=== PATIENT | male | born 1995 | race Caucasian/White ===

== ENCOUNTER 2017-08-05 08:01 | Emergency (ER) | payer BC ==
[~2017-08-05] VITALS: Ht 185.4 cm; Wt 79.1 kg
[2017-08-05 08:07] VITALS: TEMP 36.7; Ht 185.4 cm; Wt 79.1 kg
[2017-08-05] MEDS ORDERED: SODIUM CHLORIDE 0.9% 1000ML 1,000 ML IV STA (08:36)
--- NOTE | 2017-08-05 08:54 | EMERGENCY ROOM VISIT NOTE ---
ED Visit Note First contact with patient: 08:25 CHIEF COMPLAINT: Migraine headache HISTORY OF PRESENT ILLNESS: This 21-year-old male patient presents to the emergency department one day after experiencing a headache. 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 He states that the workout routine was much harder than usual, and was very high in cardio. He states proximally 2 hours after the workout ended, he noticed the acute onset of a dull headache. The patient states he had not eaten much yesterday, but otherwise states his daily routine was normal. The patient states he had been drinking plenty of water during the workout and later on throughout the day. He does have a history of migraines, but states this headache is significantly different than his previous history of migraines. He describes the pain as a constant, dull ache, and rates at 4/10. The pain moves from one side of the head to the other. He states he did attempt taking 1 Excedrin, and this did help to calm the discomfort down, however nothing has completely taken headache away. He states he did not sleep well last night, but states sleep, water, food, sitting in the quiet or dark, or a cool compress his symptoms. This is not the worst headache of the patient's life. The patient has not had any previous imaging studies. He denies any weakness or numbness of the extremities. He is having no difficulty with speech or vision. He has had no trauma to the head or neck. The patient denies fever or chills. He does report nausea, but denies vomiting. The patient does report mild photophobia and phonophobia. REVIEW OF SYSTEMS: A 10-system review of systems was performed with positives and pertinent negatives listed in the history of present illness. All other systems were reviewed and are negative. ALLERGIES: None MEDICATIONS: None PMH: migraines SOCIAL HISTORY: The patient is a [employer]. He participates in Rowing in school. He denies drug, alcohol, tobacco use. PHYSICAL EXAM: Vital Signs: Reviewed Nurse's notes, vital signs stable. GENERAL : This is a 21 year old male patient, non toxic in appearance and in no acute distress. MENTAL STATUS: Alert, oriented, and coherent. HEENT: Normocephalic. PERRLA. EOMI. Nares patent without nuchal rigidity. Tympanic membranes pearly mcknight without erythema or effusion bilaterally. Mucous membranes moist. NECK: Supple, no nuchal rigidity, nontender, no lymphadenopathy. HEART: Regular rhythm and normal rate without murmurs, ectopy, gallops, or rubs. LUNGS: Clear to auscultation bilaterally without wheezes, rales or rhonchi. No dullness to percussion. No accessory muscle use. No retractions. SKIN: Normal. NEUROLOGICAL: Pupils are round, equal and react to light. The optic fundi are normal and the discs are flat. The patient moves all extremities well and the gait is normal. RADIOLOGY: CT head without contrast: FINDINGS: Manager Forensic topogram: Unremarkable. Apparent crowding of the foramen magnum may relate to normal variant positioning of the cerebellar tonsils or Chiari malformation given the absence of acute intracranial pathology. Ventricles and sulci normal in size. Brain parenchyma normal in appearance with preserved mcknight-white differentiation. No mass effect or midline shift. No hemorrhage or acute territorial infarct. No extra-axial fluid collection. Paranasal sinuses and mastoid air cells clear. Calvarium intact. IMPRESSION: 1. No acute intracranial pathology. EMERGENCY DEPARTMENT COURSE: I examined the patient. Initial labs were drawn, an IV established, and CT scan of the head without contrast was ordered. Labs are reviewed and normal, including electrolytes and magnesium. The patient was given 1 L normal saline solution bolus through the IV. The patient did report a very mild headache prior to discharge, and did request something for the pain. He is extremely anxious about the headache, and believes there could be an intracranial hemorrhage. I did discuss with him that we did rule this out with the normal CT scan. The patient was given 600 mg ibuprofen and 4 mg sublingual Zofran prior to discharge. He was discharged home in good condition and advised to return to emergency department for worsening symptoms. The differential diagnosis includes acute intracranial bleed, meningitis, encephalitis, mass or mass effect, sinusitis, infection, tumor, headache, temporal arteritis and carbon monoxide exposure, and migraine. DIAGNOSIS: Headache DISCHARGE INSTRUCTIONS & TREATMENT: You have been treated in the Emergency Department for a Headache. For pain control, you can use the following inbs-mmt-kynbieb medicines (if >12 yo): Ibuprofen(Motrin, Advil) may be used for fever or pain. Use 600mg every six hours as needed. Take with food. Avoid using more than 2400mg in a 24 hour period. Do not use 2400mg per day for more than three consecutive days without physician direction. Prolonged inappropriate use can lead to stomach upset or ulcers. (AND/OR) Acetaminophen(Tylenol) may be used for fever or pain. Use 1000mg every six to eight hours as needed. Avoid using more than 3000mg in a 24 hour period. You should relax in a quiet, dark place for the rest of the day. Avoid any possible triggers including: cigarette smoke, caffeine, nicotine, chocolate, wine, beer, loud noises or music, or bright lights. You should schedule a follow-up appointment in 2-3 days with your Primary Care Provider or established Neurologist for further evaluation and treatment of your Headache. Return to the Emergency Department if your current symptoms worsen despite treatment course outlined above, or if you develop any of the following symptoms : intractable pain despite aforementioned treatment course, visual disturbances , loss of vision, unilateral weakness or facial drooping, slurring of speech, loss of coordination, or loss of consciousness. Current/Historical Medications No Active Prescriptions or Reported Meds Allergies Coded Allergies: Sulfa Antibiotics (Unverified Allergy, Intermediate, HIVES, 08/05/17) OCCURRED WHEN HE WAS ONE Vital Signs Date Time Temp Pulse Resp B/P (MAP) Pulse Ox O2 Delivery O2 Flow Rate FiO2 08/05/17 10:15 62 20 103/76 95 08/05/17 09:25 59 16 126/44 98 Room Air 08/05/17 08:07 36.7 89 18 115/77 95 Laboratory Results 08/05/17 08:48 Red Blood Count 5.67, Mean Corpuscular Volume 87.1, Mean Corpuscular Hemoglobin 28.9, Mean Corpuscular Hemoglobin Concent 33.2, Mean Platelet Volume 8.9, Neutrophils (%) (Auto) 70.9, Lymphocytes (%) (Auto) 22.0, Monocytes (%) (Auto) 6.3, Eosinophils (%) (Auto) 0.4, Basophils (%) (Auto) 0.2, Neutrophils # (Auto) 6.47, Lymphocytes # (Auto) 2.01, Monocytes # (Auto) 0.58, Eosinophils # (Auto) 0.04, Basophils # (Auto) 0.02 08/05/17 08:48 Test 08/05/17 08:48 White Blood Count 9.14 K/uL (4.8-10.8) Red Blood Count 5.67 M/uL (4.7-6.1) Hemoglobin 16.4 g/dL (14.0-18.0) Hematocrit 49.4 % (42-52) Mean Corpuscular Volume 87.1 fL (80-100) Mean Corpuscular Hemoglobin 28.9 pg (25-34) Mean Corpuscular Hemoglobin Concent 33.2 g/dl (32-36) Platelet Count 269 K/uL (130-400) Mean Platelet Volume 8.9 fL (7.4-10.4) Neutrophils (%) (Auto) 70.9 % Lymphocytes (%) (Auto) 22.0 % Monocytes (%) (Auto) 6.3 % Eosinophils (%) (Auto) 0.4 % Basophils (%) (Auto) 0.2 % Neutrophils # (Auto) 6.47 K/uL (1.4-6.5) Lymphocytes # (Auto) 2.01 K/uL (1.2-3.4) Monocytes # (Auto) 0.58 K/uL (0.11-0.59) Eosinophils # (Auto) 0.04 K/uL (0-0.5) Basophils # (Auto) 0.02 K/uL (0-0.2) RDW Standard Deviation 42.3 fL (36.4-46.3) RDW Coefficient of Variation 13.3 % (11.5-14.5) Immature Granulocyte % (Auto) 0.2 % Immature Granulocyte # (Auto) 0.02 K/uL (0.00-0.02) Anion Gap 7.0 mmol/L (3-11) Est Creatinine Clear Calc Drug Dose 162.1 ml/min Estimated GFR () 148.6 Estimated GFR (Non- 128.2 BUN/Creatinine Ratio 10.4 (10-20) Calcium Level 9.9 mg/dl (8.5-10.1) Magnesium Level 2.3 mg/dl (1.8-2.4) Medications Administered Medications (Trade) Dose Ordered Sig/Willam Route Start Time Stop Time Status Last Admin Dose Admin Sodium Chloride 1,000 ml @ 999 mls/hr Q1H1M STAT IV 08/05/17 08:36 9/12/17 09:37 DC 08/05/17 08:59 999 MLS/HR Ibuprofen (Motrin Tab) 600 mg NOW STAT PO 08/05/17 09:56 08/05/17 09:58 DC 08/05/17 10:30 600 MG Ondansetron HCl (Zofran Odt) 4 mg NOW STAT SL 08/05/17 09:56 08/05/17 09:58 DC 08/05/17 10:31 4 MG Departure Information Impression Primary Impression: Headache Dispostion Home / Self-Care Condition GOOD Prescriptions No Active Prescriptions or Reported Meds Referrals No Doctor, Assigned (PCP) [facility] Patient Instructions ED Headache Tension, My [facility] Additional Instructions You have been treated in the Emergency Department for a Headache. For pain control, you can use the following ecad-ags-bdjtcbo medicines (if >12 yo): Ibuprofen(Motrin, Advil) may be used for fever or pain. Use 600mg every six hours as needed. Take with food. Avoid using more than 2400mg in a 24 hour period. Do not use 2400mg per day for more than three consecutive days without physician direction. Prolonged inappropriate use can lead to stomach upset or ulcers. (AND/OR) Acetaminophen(Tylenol) may be used for fever or pain. Use 1000mg every six to eight hours as needed. Avoid using more than 3000mg in a 24 hour period. You should relax in a quiet, dark place for the rest of the day. Avoid any possible triggers including: cigarette smoke, caffeine, nicotine, chocolate, wine, beer, loud noises or music, or bright lights. You should schedule a follow-up appointment in 2-3 days with your Primary Care Provider or established Neurologist for further evaluation and treatment of your Headache. Return to the Emergency Department if your current symptoms worsen despite treatment course outlined above, or if you develop any of the following symptoms : intractable pain despite aforementioned treatment course, visual disturbances , loss of vision, unilateral weakness or facial drooping, slurring of speech, loss of coordination, or loss of consciousness. School Instructions Return To School: 1 day Problem Qualifiers Primary Impression: Headache Headache type: tension-type Headache chronicity pattern: acute headache Intractability: not intractable Qualified Codes: G44.209 - Tension-type headache, unspecified, not intractable
[2017-08-05 09:02] LABS: BASO % 0.2 %; BASO ABS # 0.02 K/uL (0-0.2); COMPLETE YES; EOS % 0.4 %; HEMATOCRIT 49.4 % (42-52); IG% 0.2 %; LYMPH ABS # 2.01 K/uL (1.2-3.4); MEAN CELL VOLUME 87.1 fL (80-100); MEAN CORPUSCULAR HEMOGLOBIN 28.9 pg (25-34); MEAN CORPUSCULAR HGB CONC 33.2 g/dl (32-36); MEAN PLATELET VOLUME 8.9 fL (7.4-10.4); MONO % 6.3 %; NEUT % 70.9 %; PLATELET COUNT 269 K/uL (130-400); RED BLOOD COUNT 5.67 M/uL (4.7-6.1); WHITE BLOOD COUNT 9.14 K/uL (4.8-10.8)
--- NOTE | 2017-08-05 09:18 | DIAGNOSTIC IMAGING REPORT ---
HEAD WITHOUT CONTRAST (CT) CLINICAL HISTORY: 21 years-old Male presenting with headache s/p exercise. TECHNIQUE: Multidetector CT imaging of the head was performed without the use of intravenous contrast. IV contrast: None. A dose lowering technique was used consistent with the principles of ALARA (as low as reasonably achievable). COMPARISON: None. CT DOSE (mGy.cm): The estimated cumulative dose is 669.45 mGycm. 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 Apparent crowding of the foramen magnum may relate to normal variant positioning of the cerebellar tonsils or Chiari malformation given the absence of acute intracranial pathology. Ventricles and sulci normal in size. Brain parenchyma normal in appearance with preserved mcknight-white differentiation. No mass effect or midline shift. No hemorrhage or acute territorial infarct. No extra-axial fluid collection. Paranasal sinuses and mastoid air cells clear. Calvarium intact. IMPRESSION: 1. No acute intracranial pathology. Electronically signed by: Daniel Arrington M.D. 08/05/2017 9:17 AM Dictated Date/Time: 08/05/2017 9:15 AM
[2017-08-05 09:20] LABS: BUN/CREATININE RATIO 10.4 (10-20); CALCIUM 9.9 mg/dl (8.5-10.1); CREATININE 0.82 mg/dl (0.60-1.40); MAGNESIUM 2.3 mg/dl (1.8-2.4); POTASSIUM 3.7 mmol/L (3.5-5.1)
[2017-08-05] MEDS ORDERED: IBUPROFEN 600 MG TAB PO STA (09:56)
[2017-08-05] MEDS ORDERED: ONDANSETRON 4MG OD TAB SL STA (09:56)
[2017-08-05 10:15] VITALS: BP 103/76; PULSE 62; O2SAT 95
== END 2017-08-05 10:15 | disposition home or self-care (01) ==
LOC: C.EDB 08:03 → EDBD 08:03 → C.EDA 10:15
DX: G44.209 Tension-type headache, unspecified, not intractable (principal)